=== PATIENT | male | born 1980 | race Caucasian/White ===

== ENCOUNTER → 2022-03-29 09:55 | Outpatient (CLI) | payer BC, SELFPAY ==
--- NOTE | ~2022-03-29 | XR_ITS ---
XR finger 2nd RT min 2V DATE: 03/29/2022 10:21 INDICATION: Deformity of second digit TECHNIQUE: 4 views COMPARISON: None FINDINGS: No fracture or dislocation, periosteal reaction or bone destruction, radiopaque soft tissue foreign body or subcutaneous emphysema is detected. Joint spaces are well preserved. No erosive haro ge or significant joint space narrowing. Small focal soft tissue swelling is noted at the dorsal aspect of the second digit proximal to the fi ngernail. IMPRESSION: Focal distal dorsal soft tissue swelling proximal to the fingernail; no radiopaque foreig n body, subcutaneous emphysema or bony abnormality Reviewed, dictated and finalized at location A. IMPRESSION: Focal distal dorsal soft tissue swelling proximal to the fingernail ; no radiopaque foreign body, subcutaneous emphysema or bony abnormality
== END ==
PROVIDERS: PCP Internal Medicine; Visit Provider Internal Medicine
DX: M20.009 Unspecified deformity of unspecified finger(s) (principal); M79.89 Other specified soft tissue disorders
CPT/HCPCS: 73140

== ENCOUNTER 2022-07-05 07:48 | Outpatient (CLI) | payer BC, SELFPAY ==
[2022-07-05 08:09] LABS: Cholesterol 213 mg/dL (0-200); HDL Direct 55 mg/dL; Triglycerides 99 mg/dL (<150)
[2022-07-05 08:20] LABS: LDL Cholesterol Direct 112 mg/dL
== END 2022-07-05 07:49 | disposition home or self-care (01) ==
LOC: ANHLAB 07:50
PROVIDERS: PCP Internal Medicine; Visit Provider Internal Medicine
DX: Z13.220 Encounter for screening for lipoid disorders (principal)
CPT/HCPCS: 36415; 80061